=== PATIENT | male | born 1980 | race Caucasian/White ===

== ENCOUNTER 2016-10-18 07:19 | Emergency (ER) | payer SELFPAY ==
[2016-10-18] MEDS ORDERED: DEXAMETHASONE 4 MG/ML VIAL ONE (08:13)
== END 2016-10-18 08:56 | disposition home or self-care (01) ==
LOC: ER 07:19
DX: J03.00 Acute streptococcal tonsillitis, unspecified (principal); I10 Essential (primary) hypertension; F17.200 Nicotine dependence, unspecified, uncomplicated
CPT/HCPCS: 96374